=== PATIENT | female | born 1955 | race Hispanic/Latino ===

== ENCOUNTER 2018-03-10 08:44 | Emergency (ER) | payer OTHER ==
[2018-03-10 08:53] VITALS: BMI 29.0
--- NOTE | 2018-03-10 09:28 | ED PDOC ---
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 Patient states she fell with her arm outstretched. She denies any dizziness, headache, head, neck or back injuries. No further medical complaints. PMD: None provided. - Fall Fall:Prior To Injury: Tripped Past Medical History Reviewed: Historical Data, Nursing Documentation, Vital Signs Vital Signs: Last Vital Signs Temp 97.8 F 03/10/18 08:51 Pulse 52 L 03/10/18 08:51 Resp 16 03/10/18 08:51 BP 130/67 03/10/18 08:51 Pulse Ox 99 03/10/18 10:57 - Medical History PMH: No Chronic Diseases - Surgical History Surgical History: No Surg Hx - Family History Family History: States: Unknown Family Hx - Social History Current smoker - smoking cessation education provided: No Alcohol: None Drugs: Denies - Home Medications Home Medications: Ambulatory Orders Medication Instructions Recorded Naproxen [Naprosyn] 500 mg PO Q12H #20 tab 03/10/18 traMADol [Ultram] 50 mg PO Q8 #10 tab 03/10/18 - Allergies Allergies/Adverse Reactions: Allergies Allergy/AdvReac Type Severity Reaction Status Date / Time No Known Allergies Allergy Verified 03/10/18 08:55 Review of Systems ROS Statement: Except As Marked, All Systems Reviewed And Found Negative Musculoskeletal: Positive for: Shoulder Pain (right). Negative for: Neck Pain, Back Pain Neurological: Negative for: Headache, Dizziness Physical Exam - Reviewed Nursing Documentation Reviewed: Yes Vital Signs Reviewed: Yes - Physical Exam Appears: Positive for: No Acute Distress Head Exam: Positive for: ATRAUMATIC, NORMAL INSPECTION, NORMOCEPHALIC Skin: Positive for: Normal Color, Warm, Dry Eye Exam: Positive for: Normal appearance, EOMI, PERRL Neck: Positive for: Painless ROM Extremity: Positive for: Other (Regular pulse 2/4 on right side). Negative for : Normal ROM (Limited ROM by pain w/ passive motion in lifting arm to horizontal. ), Deformity (Right shoulder) Neurologic/Psych: Positive for: Alert, Oriented. Negative for: Motor/Sensory Deficits (no focal deficits.) - ECG O2 Sat by Pulse Oximetry: 99 (RA) Pulse Ox Interpretation: Normal Medical Decision Making Medical Decision Making: Time: 09:16 Initial Plan: --Shoulder right [RAD] --Reevaluation ----- Scribe Attestation: Documented by Dylan Suárez, acting as a scribe for Mason Servin MD. Provider Scribe Attestation: All medical record entries made by the Scribe were at my direction and personally dictated by me. I have reviewed the chart and agree that the record accurately reflects my personal performance of the history, physical exam, medical decision making, and the department course for this patient. I have also personally directed, reviewed, and agree with the discharge instructions and disposition. Disposition - Clinical Impression Clinical Impression: Shoulder fracture, right - Patient ED Disposition Is Patient to be Admitted: No Counseled Patient/Family Regarding: Studies Performed, Diagnosis, Need For Followup, Rx Given - Disposition Referrals: Santos Gutierrez MD [Staff Provider] - Disposition: Routine/Home Disposition Time: 10:56 Condition: FAIR Prescriptions: Naproxen [Naprosyn] 500 mg PO Q12H #20 tab traMADol [Ultram] 50 mg PO Q8 #10 tab Instructions: Shoulder Fracture Forms: [employer] ([place])
--- NOTE | 2018-03-10 12:33 | RAD ---
Date of service: 03/10/2018 PROCEDURE: Radiographs of the Right Shoulder HISTORY: trauma COMPARISON: No prior. FINDINGS: BONES: Acute and impacted right humeral head fracture extending through the greater tuberosity. JOINTS: Normal. Glenohumeral and acromioclavicular joints preserved. No osteoarthritis. SOFT TISSUES: Normal. OTHER FINDINGS: None. IMPRESSION: Acute fracture right humeral head. No associated articular abnormalities.
[2018-03-10 12:38] VITALS: BP 129/68; PULSE 62; RESP 18; TEMP 98; O2SAT 100
== END 2018-03-10 12:25 | disposition home or self-care (01) ==
LOC: H.ER 08:44
DX: S42.201A Unspecified fracture of upper end of right humerus, initial encounter for closed fracture (principal); W01.0XXA Fall on same level from slipping, tripping and stumbling without subsequent striking against object, initial encounter; Y92.89 Other specified places as the place of occurrence of the external cause